=== PATIENT | male | born 1970 | race Asian ===

== ENCOUNTER → 2016-09-21 | Outpatient (CLI) | payer MEDICAID ==
[~2016-09-21] MED LIST: ASPI-515 PO; DOCU100C8 PO; FURO20TA3 PO; HYDR-3307 PO; LEVO112T6 PO; METO25TA35 PO; MORP30TA81 PO; PANT40TA5 PO; POTA10TA11 PO; WARF10TA6 PO; WARF5TAB PO
[2016-09-21 11:51] LABS: HEMOGLOBIN 16.5 g/dL (13.7-18.0)
== END | disposition home or self-care (01) ==
LOC: STAR 10:52
PROVIDERS: ATTEND Colon & Rectal Surgery
DX: Z01.818 Encounter for other preprocedural examination (principal); R79.1 Abnormal coagulation profile
CPT/HCPCS: 36415; 85025; 85610; 85730; 93005

== ENCOUNTER 2016-09-27 06:18 | Day surgery (SDC) | payer MEDICAID ==
[~2016-09-27] VITALS: Ht 182.9 cm; Wt 81.0 kg
[2016-09-27 07:06] VITALS: BP 124/85
[2016-09-27] MEDS ORDERED: ENOX120S5 SQ (07:09)
[2016-09-27] MEDS ORDERED: BUPIVACAINE/PF-EPI 0.5% 1:200K ONE (07:17)
[2016-09-27] MEDS ORDERED: BUPIVACAINE/PF-EPI 0.25% 1:200K ONE (07:17)
[2016-09-27] MEDS ORDERED: KETOROLAC 30 MG/1 ML IV PRN (07:30)
[2016-09-27] MEDS ORDERED: ONDANSETRON 2MG/ML, 2ML IVPush PRN (07:30)
[2016-09-27] MEDS ORDERED: MIDAZOLAM 1 MG/ML, 2ML IV PRN (07:30)
[2016-09-27] MEDS ORDERED: HYDROmorphone 1 MG/ML, 1ML IV PRN (07:30)
[2016-09-27] MEDS ORDERED: OXYcodone 5 MG/5 ML ORAL.SOL UDC PO PRN (07:30)
[2016-09-27] MEDS ORDERED: HYDROcodone/APAP 7.5-325MG/15ML UDC PO PRN (07:30)
[2016-09-27] MEDS ORDERED: FENTANYL PF 100 MCG/2ML IV PRN (07:30)
[2016-09-27] MEDS ORDERED: PROMETHAZINE 25 MG/ML, 1ML IV PRN (07:30)
[2016-09-27] MEDS ORDERED: ACETAMINOPHEN 325 MG TABLET PO PRN (07:30)
[2016-09-27] MEDS ORDERED: MEPERIDINE/PF 25MG/0.5ML IVPush PRN (07:30)
[2016-09-27] MEDS ORDERED: MIDAZOLAM 1 MG/ML, 2ML ONE (07:32)
[2016-09-27] MEDS ORDERED: PROPOFOL 10 MG/ML, 20ML ONE (07:32)
[2016-09-27] MEDS ORDERED: DEXAMETHASONE 4 MG/ML, 1ML ONE (07:32)
[2016-09-27] MEDS ORDERED: ONDANSETRON 2MG/ML, 2ML ONE (07:32)
[2016-09-27] MEDS ORDERED: FENTANYL PF 250 MCG/5ML ONE (07:32)
[2016-09-27] MEDS ORDERED: CEFOTETAN 2 GM ONE (07:32)
[2016-09-27] MEDS ORDERED: ACETAMINOPHEN 325 MG TABLET ONE (08:22)
[2016-09-27] MEDS ORDERED: KETOROLAC 30 MG/1 ML ONE (08:22)
[2016-09-27] MEDS ORDERED: OXYcodone 5 MG/5 ML ORAL.SOL UDC ONE (08:22)
== END 2016-09-27 10:05 | disposition home or self-care (01) ==
LOC: OUT 06:18
PROVIDERS: ATTEND Colon & Rectal Surgery
DX: K62.0 Anal polyp (principal); K60.2 Anal fissure, unspecified; E03.9 Hypothyroidism, unspecified; E78.5 Hyperlipidemia, unspecified; Z87.891 Personal history of nicotine dependence; I34.0 Nonrheumatic mitral (valve) insufficiency
CPT/HCPCS: 36415; 46200; 85610; 85730; 88304; J1100; J1885; J2250; J2405; J2704; J3010; S0074

== ENCOUNTER 2016-11-30 21:39 | Emergency (ER) | payer MEDICAID ==
[~2016-11-30] VITALS: Ht 182.9 cm; Wt 82.5 kg
[~2016-11-30 21:39] MED LIST changes: +ENOX120S5 SQ
[2016-11-30] MEDS ORDERED: SODIUM CHLORIDE 0.9% 1,000ML IVBOLUS ONE (22:30)
[2016-11-30] MEDS ORDERED: ONDANSETRON 2MG/ML, 2ML IVPush ONE (22:30)
[2016-11-30] MEDS ORDERED: SODIUM CHLORIDE FLUSH 10ML SYR IVF ONE (22:30)
[2016-11-30] MEDS ORDERED: MORPHINE SULFATE 4 MG/ML, 1ML ONE (22:36)
[2016-11-30] MEDS ORDERED: ONDANSETRON 2MG/ML, 2ML ONE (22:36)
[2016-11-30] MEDS: MORPHINE SULFATE 4 MG/ML, 1ML IVPush PRN (22:47)
[2016-11-30 23:06] LABS: ASPARTATE AMINO TRANSFERASE 54 U/L (15-37); BLOOD UREA NITROGEN 10 mg/dL (7-18)
[2016-12-01] MEDS ORDERED: FAMOTIDINE 20 MG/2 ML IVPush ONE (00:30)
[2016-12-01] MEDS ORDERED: MAALOX/HYOSCYAMINE/LIDOCAINE 45 ML BOTTLE PO ONE (00:30)
[2016-12-01] MEDS ORDERED: FAMOTIDINE 20 MG/2 ML ONE (00:41)
[2016-12-01] MEDS ORDERED: MAALOX/HYOSCYAMINE/LIDOCAINE 45 ML BOTTLE ONE (00:42)
[2016-12-01 01:20] LABS: IS PT STATUS REG ER OR PRE ER? YES
[2016-12-01] MEDS ORDERED: MORPHINE SULFATE 4 MG/ML, 1ML ONE (01:57)
[2016-12-01] MEDS: MORPHINE SULFATE 4 MG/ML, 1ML IVPush PRN (01:59)
[2016-12-01 02:02] VITALS: BP 116/65
== END 2016-12-01 02:38 | disposition home or self-care (01) ==
LOC: ED 23:59
DX: N20.0 Calculus of kidney (principal); K57.30 Diverticulosis of large intestine without perforation or abscess without bleeding
CPT/HCPCS: 36415; 74176; 76700; 80053; 81001; 83690; 84484; 85025; 93005; 96361; 96374; 96375; 96376; 99285; J2405; J7030; S0028

== ENCOUNTER 2016-12-11 00:46 | Emergency (ER) | payer MEDICAID ==
[~2016-12-11] VITALS: Ht 182.9 cm; Wt 82.9 kg
[2016-12-11 01:52] LABS: BLOOD UREA NITROGEN 15 mg/dL (7-18)
[2016-12-11 02:01] LABS: IS PT STATUS REG ER OR PRE ER? YES
[2016-12-11] MEDS ORDERED: HYDROcodone/APAP 5/325 TABLET ONE (02:05)
[2016-12-11] MEDS ORDERED: HYDROcodone/APAP 5/325 TABLET PO ONE (02:30)
[2016-12-11] MEDS ORDERED: PROMETHAZINE 25 MG/ML, 1ML IM ONE (03:00)
[2016-12-11] MEDS ORDERED: PROMETHAZINE 25 MG/ML, 1ML ONE (03:01)
[2016-12-11 03:08] VITALS: BP 129/76
== END 2016-12-11 04:16 | disposition home or self-care (01) ==
LOC: ED 03:55
DX: R55 Syncope and collapse (principal); G44.319 Acute post-traumatic headache, not intractable; E78.00 Pure hypercholesterolemia, unspecified
CPT/HCPCS: 36415; 70450; 71010; 80048; 82040; 84484; 85025; 85610; 93005; 96372; 99285; J2550

== ENCOUNTER 2018-06-05 08:12 | Emergency (ER) | payer MEDICAID ==
[~2018-06-05] VITALS: Ht 182.9 cm; Wt 81.7 kg
[~2018-06-05 08:12] MED LIST changes: +DOCU100C33 PO; -DOCU100C8 PO; +WARF10TA43 PO; -WARF10TA6 PO
[2018-06-05 09:55] LABS: BASOPHILS # (AUTO) 0.02 x10^3/uL (0-0.1); BASOPHILS % (AUTO) 0 % (0-1); EOSINOPHILS # (AUTO) 0.05 x10^3/uL (0-0.4); EOSINOPHILS % (AUTO) 1 % (1-7); LYMPHOCYTES # (AUTO) 1.45 x10^3/uL (1-3.4); LYMPHOCYTES % (AUTO) 29 % (22-44); MD NO; MEAN CORPUSCULAR HEMOGLOBIN 31.7 pg (27.5-34.5); MEAN CORPUSCULAR HGB CONC 34.3 g/dL (33.2-36.2); MEAN CORPUSCULAR VOLUME 92.4 fL (81-97); MEAN PLATELET VOLUME 10.6 fL (7.4-10.4); MONOCYTES # (AUTO) 0.33 x10^3/uL (0.2-0.8); MONOCYTES % (AUTO) 7 % (2-9); NEUTROPHILS # (AUTO) 3.18 x10^3/uL (1.8-6.8); NEUTROPHILS % (AUTO) 63 % (42-75); PLATELET COUNT 167 x10^3/uL (130-400); RED BLOOD COUNT 5.26 x10^6/uL (4.38-5.82); RED CELL DISTRIBUTION WIDTH 13.6 % (9.4-14.8)
[2018-06-05 10:01] LABS: ALANINE AMINOTRANSFERASE 26 U/L (12-78); ANION GAP 4 mmol/L (5-15); CALCIUM 8.6 mg/dL (8.5-10.1); CHLORIDE 108 mmol/L (98-107); CREATININE 1.21 mg/dL (0.7-1.3)
[2018-06-05 10:05] LABS: ALKALINE PHOSPHATASE 81 U/L (45-117); BILIRUBIN,TOTAL 1.7 mg/dL (0.2-1.0); TOTAL PROTEIN 7.9 g/dL (6.4-8.2); TROPONIN I < 0.015 ng/mL (0.000-0.045)
[2018-06-05 10:25] VITALS: BP 124/83
== END 2018-06-05 10:48 | disposition home or self-care (01) ==
LOC: ED 09:03
DX: R07.89 Other chest pain (principal); E78.00 Pure hypercholesterolemia, unspecified
CPT/HCPCS: 36415; 71046; 80053; 84484; 85025; 93005; 99284

== ENCOUNTER 2018-11-02 21:59 | Emergency (ER) | payer MEDICAID ==
[~2018-11-02] VITALS: Ht 182.9 cm; Wt 80.8 kg
[2018-11-02 22:03] VITALS: BP 158/97
--- NOTE | 2018-11-02 22:09 | NUR ---
BILAT HAND SWELLING AND BILAT KNEE SWELLING AND PAIN. STATED ALSO HAVING PROBLEM WITH LEFT SIDE THYROID AND HAS TROUBLE SWALLOWING.
[2018-11-02] MEDS ORDERED: DIAZEPAM 5 MG TABLET ONE (22:30)
[2018-11-02] MEDS ORDERED: DIAZEPAM 5 MG TABLET PO ONE (22:30)
[2018-11-02] MEDS ORDERED: HYDROmorphone 1 MG/ML, 1ML INJ IM ONE (22:30)
[2018-11-02 22:31] LABS: BASOPHILS # (AUTO) 0.03 x10^3/uL (0-0.1); BASOPHILS % (AUTO) 0 % (0-1); EOSINOPHILS # (AUTO) 0.11 x10^3/uL (0-0.4); EOSINOPHILS % (AUTO) 1 % (1-7); LYMPHOCYTES % (AUTO) 22 % (22-44); MD NO; MEAN CORPUSCULAR HEMOGLOBIN 30.4 pg (27.5-34.5); MEAN CORPUSCULAR VOLUME 92.3 fL (81-97); MEAN PLATELET VOLUME 9.4 fL (7.4-10.4); MONOCYTES % (AUTO) 5 % (2-9); NEUTROPHILS # (AUTO) 6.67 x10^3/uL (1.8-6.8); NEUTROPHILS % (AUTO) 72 % (42-75); PLATELET COUNT 245 x10^3/uL (130-400); RED BLOOD COUNT 4.65 x10^6/uL (4.38-5.82); RED CELL DISTRIBUTION WIDTH 13.6 % (9.4-14.8)
[2018-11-02] MEDS ORDERED: HYDROmorphone 2 MG/ML, 1ML ONE (22:31)
--- NOTE | 2018-11-02 22:40 | NUR ---
MEDICATED PER MAR PLACED ON CONTINOUS PULSE OX
[2018-11-02 22:44] LABS: ALBUMIN 3.6 g/dL (3.4-5.0); ANION GAP 8 mmol/L (5-15); CALCIUM 8.7 mg/dL (8.5-10.1); CHLORIDE 109 mmol/L (98-107)
[2018-11-02 22:53] LABS: T4 (THYROXINE) 11.9 mcg/dL (4.5-12.1)
[2018-11-02 23:11] LABS: INTERNATIONAL NORMALIZED RATIO 1.97 (0.93-1.1); PROTHROMBIN TIME 20.2 Seconds (9.6-11.5)
--- NOTE | 2018-11-03 00:07 | NUR ---
Patient/Caregiver given discharge instructions and they have confirmed that they understand the instructions. Patient ambulatory with steady gait.
== END 2018-11-03 00:08 | disposition home or self-care (01) ==
LOC: ED 22:18
DX: M19.042 Primary osteoarthritis, left hand (principal); M19.041 Primary osteoarthritis, right hand; M17.11 Unilateral primary osteoarthritis, right knee; E78.00 Pure hypercholesterolemia, unspecified; Z95.1 Presence of aortocoronary bypass graft; Z95.4 Presence of other heart-valve replacement
CPT/HCPCS: 36415; 80048; 82040; 84436; 84443; 85025; 85610; 85730; 96372; 99283; J1170

== ENCOUNTER → 2019-05-11 | Outpatient (CLI) | payer MEDICAID ==
[~2019-05-11] MED LIST changes: -HYDR-3307 PO; +HYDR-36 PO
== END | disposition home or self-care (01) ==
LOC: CFH 10:50
PROVIDERS: ATTEND Internal Medicine Cardiovascular Disease
DX: I34.0 Nonrheumatic mitral (valve) insufficiency (principal); Q23.0 Congenital stenosis of aortic valve; Z95.2 Presence of prosthetic heart valve; Z79.01 Long term (current) use of anticoagulants; Z87.891 Personal history of nicotine dependence
CPT/HCPCS: 93306

== ENCOUNTER → 2019-07-15 | Outpatient (CLI) | payer MEDICAID ==
[~2019-07-15] MED LIST changes: +OMNIPAQUE 350 MG/ML, 100ML BOTTLE ONE
== END | disposition home or self-care (01) ==
LOC: CFH 08:48
PROVIDERS: ATTEND Internal Medicine Cardiovascular Disease
DX: I71.2 Thoracic aortic aneurysm, without rupture (principal)
CPT/HCPCS: 71275; Q9967

== ENCOUNTER → 2020-08-17 | Outpatient (CLI) | payer MEDICAID ==
[~2020-08-17] MED LIST changes: -ASPI-515 PO; +ASPI-963 PO; +HYDR-3248 PO; -HYDR-36 PO; -OMNIPAQUE 350 MG/ML, 100ML BOTTLE ONE; -PANT40TA5 PO; +PANT40TA6 PO; -WARF5TAB PO; +WARF5TAB2 PO
== END | disposition home or self-care (01) ==
LOC: CFH 16:00
PROVIDERS: ATTEND Internal Medicine Cardiovascular Disease
DX: I34.0 Nonrheumatic mitral (valve) insufficiency (principal); I11.9 Hypertensive heart disease without heart failure; Q23.0 Congenital stenosis of aortic valve
CPT/HCPCS: 93306

== ENCOUNTER 2020-12-12 18:07 | Emergency (ER) | payer MEDICAID ==
[~2020-12-12] VITALS: Ht 182.9 cm; Wt 84.3 kg
[2020-12-12 18:08] VITALS: BP 134/85
--- NOTE | 2020-12-12 22:26 | NUR ---
BANQUET KITCHEN SUPERVISOR: PT. TO ROOM FROM LOBBY AT THIS TIME.
[2020-12-12] MEDS ORDERED: METHOCARBAMOL 750 MG TABLET ONE (22:45)
[2020-12-12] MEDS ORDERED: KETOROLAC 60 MG/2 ML ONE (22:45)
[2020-12-12] MEDS ORDERED: METHOCARBAMOL 750 MG TABLET PO ONE (23:00)
[2020-12-12] MEDS ORDERED: KETOROLAC 60 MG/2 ML IM ONE (23:00)
== END 2020-12-12 23:32 | disposition home or self-care (01) ==
LOC: ED 22:30
DX: S39.012A Strain of muscle, fascia and tendon of lower back, initial encounter (principal); E78.00 Pure hypercholesterolemia, unspecified; Z87.891 Personal history of nicotine dependence; X58.XXXA Exposure to other specified factors, initial encounter; Y93.89 Activity, other specified; Y92.89 Other specified places as the place of occurrence of the external cause; Y99.8 Other external cause status
CPT/HCPCS: 96372; 99283; J1885

== ENCOUNTER 2021-01-08 16:24 | Inpatient (IN) | payer MEDICAID ==
[~2021-01-08] VITALS: Ht 182.9 cm; Wt 85.8 kg
--- NOTE | 2021-01-08 17:06 | NUR ---
"I HURT MY HEAD BADLY, LIKE TWO WEEKS AGO. PT STATES WHEN HE STANDS HE IS NOW DIZZY" PT HAD CT ORDER BUT COULD NOT GET IN TO HAVE DONE. UNSURE IF +LOC. PT IN BED IN GOWN WITH CONT GROUP TEACHER, SPO2, BP Q 30 MIN, SIDE RAILS UP X2, CALL LIGHT IN REACH. AWATING MD MOLINA. NAD
--- NOTE | 2021-01-08 17:38 | NUR ---
PT TO CT
[2021-01-08] MEDS ORDERED: ACETAMINOPHEN 500 MG TABLET ONE (17:44)
[2021-01-08] MEDS ORDERED: PROMETHAZINE 25 MG/ML, 1ML ONE (17:44)
[2021-01-08] MEDS ORDERED: PROMETHAZINE 25 MG/ML, 1ML IM ONE (18:00)
[2021-01-08] MEDS ORDERED: [UNRECOGNIZED DRUG - OTHER] IV ONE (18:00)
[2021-01-08] MEDS ORDERED: ACETAMINOPHEN 500 MG TABLET PO ONE (18:00)
[2021-01-08] MEDS ORDERED: HUM PROTHROMBIN CPLX IV ONE (18:00)
--- NOTE | 2021-01-08 18:17 | NUR ---
paharmacy-nursing communication form sent for meds
[2021-01-08 18:23] LABS: BASOPHILS % (AUTO) 1 % (0-1); EOSINOPHILS % (AUTO) 0 % (1-7); LYMPHOCYTES % (AUTO) 16 % (22-44); MEAN CORPUSCULAR HEMOGLOBIN 31.1 pg (27.5-34.5); MEAN CORPUSCULAR HGB CONC 33.8 g/dL (33.2-36.2); MEAN PLATELET VOLUME 11.8 fL (7.4-10.4); MONOCYTES % (AUTO) 8 % (2-9); NEUTROPHILS % (AUTO) 76 % (42-75); PLATELET COUNT 146 x10^3/uL (130-400); RED BLOOD COUNT 4.35 x10^6/uL (4.38-5.82); RED CELL DISTRIBUTION WIDTH 13.5 % (9.4-14.8)
[2021-01-08] MEDS ORDERED: PHYTONADIONE 10 MG in SODIUM CHLORIDE 0.9% 50 ML IV ONE (18:30)
[2021-01-08 18:34] LABS: ALBUMIN 3.6 g/dL (3.4-5.0); ANION GAP 3 mmol/L (5-15); CALCIUM 8.7 mg/dL (8.5-10.1); CHLORIDE 108 mmol/L (98-107); CREATININE 1.19 mg/dL (0.7-1.3)
[2021-01-08 18:38] LABS: INTERNATIONAL NORMALIZED RATIO 2.58 (0.93-1.1); PROTHROMBIN TIME 26.4 Seconds (9.6-11.5)
--- NOTE | 2021-01-08 19:55 | NUR ---
PATIENT AMBULATORY TO RESTROOM. PATIENT DOES NOT WANT THIS RNS HELP HE STATES HE IS OK TO GO BY HIMSELF. DENIES DIZZINESS.
[2021-01-08] MEDS ORDERED: ACETAMINOPHEN 325 MG TABLET PO PRN (20:00)
[2021-01-08] MEDS ORDERED: POLYETHYLENE GLYCOL 17 GM PACKET PO PRN (20:00)
[2021-01-08] MEDS ORDERED: ONDANSETRON 2MG/ML, 2ML IVPush PRN (20:00)
[2021-01-08] MEDS ORDERED: LABETALOL 5MG/ML, 20ML IVPush PRN (20:00)
[2021-01-08] MEDS ORDERED: GUAIFENESIN/DM 200-20MG, 10ML UDC PO PRN (20:00)
[2021-01-08] MEDS ORDERED: MELATONIN 5 MG TABLET PO PRN (20:00)
--- NOTE | 2021-01-08 20:00 | NUR ---
PATIENT BACK FROM RESTROOM. PLACED BACK ON WARD ATTENDANT. FAMILY AT BEDSIDE. WILL CONTINUE TO MONITOR.
--- NOTE | 2021-01-08 20:25 | NUR ---
MULTIPLE FAMILY MEMEBERS AT BEDSIDE. PATIENT NOW C/O OF DIZZINESS. ATTEMPTED TO CALL MD SUAZO. LEFT VOICEMAIL. WILL CONTINUE TO MONITOR.
--- NOTE | 2021-01-08 20:32 | NUR ---
SPOKE WITH MD SUAZO. NO NEW ORDERS AT THIS TIME. WILL CONTINUE TO MONITOR.
--- NOTE | 2021-01-08 20:45 | NUR ---
PATIENT PROVIDED WITH BLANKET AND ICE WATER. STATES SHE IS GOING TO GET HIM SOMETHING TO EAT.
--- NOTE | 2021-01-08 21:42 | NUR ---
NEURO INTACT. DENIES TRAN/ DIZZINESS AT THIS TIME. BROUGHT PATIENT FOOD. WILL CONTINUE TO MONITOR.
--- NOTE | 2021-01-08 22:11 | NUR ---
PROVIDED PATIENT WITH PILLOW/ BLANKET. DENIES ANY OTHER NEEDS AT THIS TIME. / SON REMAIN AT BEDSIDE.
[2021-01-09] MEDS ORDERED: MELATONIN 5 MG TABLET ONE (00:14)
--- NOTE | 2021-01-09 00:16 | NUR ---
PLACED PATIENT ON INPATIENT BED. REQUESTING MEDICATION FOR SLEEP. NEURO INTACT. DENIES ANY OTHER NEEDS AT THIS TIME. [facility]
--- NOTE | 2021-01-09 00:30 | NUR ---
REPORT GIVEN TO PAULINE HOOPER CCU.
[2021-01-09 01:53] VITALS: BP_SYST 113; BP_DIAS 66; BP_DIAS 96
[2021-01-09 04:24] LABS: BASOPHILS % (AUTO) 1 % (0-1); EOSINOPHILS % (AUTO) 3 % (1-7); LYMPHOCYTES % (AUTO) 30 % (22-44); MEAN CORPUSCULAR HEMOGLOBIN 31.1 pg (27.5-34.5); MEAN CORPUSCULAR HGB CONC 33.3 g/dL (33.2-36.2); MONOCYTES % (AUTO) 12 % (2-9); NEUTROPHILS % (AUTO) 55 % (42-75); PLATELET COUNT 136 x10^3/uL (130-400); RED BLOOD COUNT 4.41 x10^6/uL (4.38-5.82); RED CELL DISTRIBUTION WIDTH 13.7 % (9.4-14.8)
[2021-01-09 04:37] LABS: CALCIUM 8.7 mg/dL (8.5-10.1); CHLORIDE 113 mmol/L (98-107)
[2021-01-09 04:41] LABS: ANION GAP 2 mmol/L (5-15); CHOL/HDL RATIO 4.2; CHOLESTEROL, TOTAL 133 mg/dL (140-239); CREATININE 1.11 mg/dL (0.7-1.3); HDL CHOL % 24 % (26-37); HDL CHOLESTEROL (DIRECT) 32 mg/dL (40-60); LDL CHOLESTEROL,CALCULATED 62 mg/dL (54-169); LDL/HDL RATIO 1.9 (0.5-3.0); TRIGLYCERIDES 194 mg/dL (50-200); VLDL CHOLESTEROL 39 mg/dL (0-25)
[2021-01-09] MEDS ORDERED: POTASSIUM CHLORIDE 20 MEQ TAB.ER.PRT PO ONE (06:30)
[2021-01-09 07:37] LABS: INTERNATIONAL NORMALIZED RATIO 1.12 (0.93-1.1); PROTHROMBIN TIME 11.9 Seconds (9.6-11.5)
== END 2021-01-09 12:01 | disposition home or self-care (01) | DRG 65 ==
LOC: ED 18:16 → EDIP 19:47 → CCU 01-09 00:37 → DCLOUNGE 01-09 11:40
PROVIDERS: ADMIT Internal Medicine; ATTEND Internal Medicine
DX: I62.01 Nontraumatic acute subdural hemorrhage (principal); G81.91 Hemiplegia, unspecified affecting right dominant side; E78.00 Pure hypercholesterolemia, unspecified; R40.2410 Glasgow coma scale score 13-15, unspecified time; E03.9 Hypothyroidism, unspecified; Z95.2 Presence of prosthetic heart valve; Z87.891 Personal history of nicotine dependence; Z79.01 Long term (current) use of anticoagulants; Z95.1 Presence of aortocoronary bypass graft
CPT/HCPCS: 36415; 70450; 80048; 80061; 82040; 83735; 84100; 84443; 85025; 85610; 85730; 87081; J2550; J3430; C9132

== ENCOUNTER 2021-01-26 08:11 | Emergency (ER) | payer MEDICAID ==
[~2021-01-26] VITALS: Ht 182.9 cm; Wt 82.5 kg
[2021-01-26 09:00] LABS: BASOPHILS % (AUTO) 1 % (0-1); EOSINOPHILS % (AUTO) 1 % (1-7); LYMPHOCYTES % (AUTO) 18 % (22-44); MEAN CORPUSCULAR HEMOGLOBIN 30.8 pg (27.5-34.5); MEAN CORPUSCULAR HGB CONC 33.9 g/dL (33.2-36.2); MEAN PLATELET VOLUME 9.1 fL (7.4-10.4); MONOCYTES % (AUTO) 5 % (2-9); NEUTROPHILS % (AUTO) 75 % (42-75); PLATELET COUNT 306 x10^3/uL (130-400); RED BLOOD COUNT 4.48 x10^6/uL (4.38-5.82); RED CELL DISTRIBUTION WIDTH 13.5 % (9.4-14.8)
[2021-01-26 09:11] LABS: ALANINE AMINOTRANSFERASE 23 U/L (12-78); ALBUMIN 3.6 g/dL (3.4-5.0); ANION GAP 5 mmol/L (5-15); CALCIUM 8.9 mg/dL (8.5-10.1); CHLORIDE 113 mmol/L (98-107); CREATININE 1.11 mg/dL (0.7-1.3); INTERNATIONAL NORMALIZED RATIO 3.06 (0.93-1.1)
--- NOTE | 2021-01-26 09:16 | NUR ---
PT AMBULATORY TO ROOM 20 W/ C/O TRAN X 1 WEEK. PT WAS SEEN AT [facility]'S OFFICE FOR MENINGEAL ARTERY EMBOLIZATION W/ DRAINAGE. PT STATES HE HAS HAD A CONTINUOUS TRAN SINCE THEN AND PT STATES HE FEELS THAT HE SHOULD HAVE SIGNIFICANT IMPROVEMENT OF TRAN AFTER SURGERY. PT NEURO INTACT. AOX4. PT STATES HE WAS PLACED ON TOPIRAMATE AND ONLY TOO IT A HANDFUL OF TIMES. PT RESTING IN EYE CHAIR. NADN. MONITORS APPLIED. VSS. ARM BLANKET PROVIDED. CALL LIGHT IN REACH.
[2021-01-26 09:17] LABS: ALKALINE PHOSPHATASE 64 U/L (45-117); BILIRUBIN,TOTAL 0.6 mg/dL (0.2-1.0); TOTAL PROTEIN 7.7 g/dL (6.4-8.2)
--- NOTE | 2021-01-26 09:40 | NUR ---
PT CHART REVIEWED AND PLACED FOR RECHECK.
[2021-01-26] MEDS ORDERED: DIPHENHYDRAMINE 50 MG/ML, 1ML ONE (09:47)
[2021-01-26] MEDS ORDERED: PROCHLORPERAZINE 5 MG/ML, 2ML ONE (09:47)
[2021-01-26] MEDS ORDERED: ONDANSETRON 2MG/ML, 2ML ONE (09:47)
[2021-01-26] MEDS ORDERED: DIPHENHYDRAMINE 50 MG/ML, 1ML IVPush ONE (10:00)
[2021-01-26] MEDS ORDERED: PROCHLORPERAZINE 5 MG/ML, 2ML IVPush ONE (10:00)
[2021-01-26] MEDS ORDERED: SODIUM CHLORIDE 0.9% 1,000ML IVBOLUS ONE (10:00)
[2021-01-26] MEDS ORDERED: ONDANSETRON ODT 4 MG PO ONE (10:00)
[2021-01-26] MEDS ORDERED: SODIUM CHLORIDE FLUSH 10ML SYR IVF ONE (10:00)
[2021-01-26 10:04] VITALS: BP 135/84
--- NOTE | 2021-01-26 10:04 | NUR ---
PT RESTING IN EYE CHAIR. VSS. ERP DR. SNYDER AT BEDSIDE FOR RE-EVAL.
[2021-01-26] MEDS ORDERED: ONDANSETRON 2MG/ML, 2ML IVPush ONE (10:30)
== END 2021-01-26 10:57 | disposition home or self-care (01) ==
LOC: ED 08:40
DX: R51.9 Headache, unspecified (principal); G89.29 Other chronic pain; R42 Dizziness and giddiness; E78.00 Pure hypercholesterolemia, unspecified; Z86.39 Personal history of other endocrine, nutritional and metabolic disease; Z87.891 Personal history of nicotine dependence
CPT/HCPCS: 36415; 70450; 80053; 85025; 85610; 85730; 96361; 96374; 96375; 99284; J0780; J1200; J2405; J7030

== ENCOUNTER 2021-02-06 03:29 | Inpatient (IN) | payer MEDICAID ==
[2021-02-06] VITALS (7 sets, daily range): BP systolic 112–149; BP diastolic 61–90
[~2021-02-06] VITALS: Ht 182.9 cm; Wt 81.1 kg
[2021-02-06] MEDS ORDERED: PROCHLORPERAZINE 5 MG/ML, 2ML IM ONE (04:30)
[2021-02-06] MEDS ORDERED: MORPHINE SULFATE 4 MG/ML, 1ML IVPush PRN (04:30)
[2021-02-06] MEDS ORDERED: PROCHLORPERAZINE 5 MG/ML, 2ML ONE (04:32)
[2021-02-06] MEDS ORDERED: MORPHINE SULFATE 4 MG/ML, 1ML ONE ×2 (04:32→07:40)
[2021-02-06 04:55] LABS: BASOPHILS % (AUTO) 0 % (0-1); EOSINOPHILS % (AUTO) 3 % (1-7); LYMPHOCYTES % (AUTO) 26 % (22-44); MEAN CORPUSCULAR HEMOGLOBIN 30.4 pg (27.5-34.5); MEAN CORPUSCULAR HGB CONC 33.3 g/dL (33.2-36.2); MEAN PLATELET VOLUME 10.4 fL (7.4-10.4); MONOCYTES % (AUTO) 10 % (2-9); NEUTROPHILS % (AUTO) 61 % (42-75); PLATELET COUNT 245 x10^3/uL (130-400); RED BLOOD COUNT 4.59 x10^6/uL (4.38-5.82); RED CELL DISTRIBUTION WIDTH 13.6 % (9.4-14.8)
[2021-02-06 05:07] LABS: ALBUMIN 3.6 g/dL (3.4-5.0); ANION GAP 6 mmol/L (5-15); CALCIUM 8.7 mg/dL (8.5-10.1); CHLORIDE 111 mmol/L (98-107); CREATININE 1.12 mg/dL (0.7-1.3)
[2021-02-06 05:11] LABS: INTERNATIONAL NORMALIZED RATIO 7.27 (0.93-1.1); PROTHROMBIN TIME 70.8 Seconds (9.6-11.5)
[2021-02-06] MEDS ORDERED: OMNIPAQUE 350 MG/ML, 100ML BOTTLE ONE (06:07)
--- NOTE | 2021-02-06 06:09 | NUR ---
Pt back from CT
--- NOTE | 2021-02-06 06:55 | NUR ---
REPORT RECEIVED FROM ERASMO CARPENTER. PT LAYING ON GURNEY WITH EYES CLOSED BUT RESPONDS APPROP TO STAFF, C/O INCR TRAN- ERP AWARE, COMFORT MEASURES PROVIDED, AT BS, CALL LIGHT WITHIN REACH.
--- NOTE | 2021-02-06 06:55 | NUR ---
Report given to PAULINE Henson
[2021-02-06] MEDS ORDERED: PHYTONADIONE 10 MG/ML, 1ML SQ ONE (07:00)
[2021-02-06] MEDS ORDERED: PHYTONADIONE 10 MG/ML, 1ML ONE (07:06)
[2021-02-06] MEDS: MORPHINE SULFATE 4 MG/ML, 1ML IVPush PRN ×2 (07:48→14:34)
--- NOTE | 2021-02-06 08:02 | NUR ---
PT CONTINUES LAYING ON GURNEY WITH EYES CLOSED BUT RESPONDS APPROP TO STAFF, NAD & MORE COMFORTABLE AFTER PAIN MED, NO NEEDS AT THIS TIME, AT BS, CALL LIGHT WITHIN REACH. ALSO SEEN BY H
--- NOTE | 2021-02-06 09:05 | NUR ---
PT CONTINUES LAYING ON GURNEY ABLE TO COMFORTBALY DOZE OFF BUT RESPONDS APPROP TO STAFF, NAD, COMFORT MEASURES PROVIDED, AT BS, CALL LIGHT WITHIN REACH.
--- NOTE | 2021-02-06 10:04 | NUR ---
PT LAYING ON GURNEY MOSTLY SLEEPING BUT RESPONDS APPROP TO STAFF W VERBAL STIMULI, NAD, NO NEEDS AT THIS TIME, AT BS, CALL LIGHT WITHIN REACH.
[2021-02-06] MEDS ORDERED: Keppra (10:53)
[2021-02-06] MEDS ORDERED: Statin (10:53)
[2021-02-06] MEDS ORDERED: Coumadin (10:53)
--- NOTE | 2021-02-06 10:59 | NUR ---
PT CONTINUES LAYING ON GURNEY MOSTLY SLEEPING BUT RESPONDS APPROP TO STAFF W VERBAL STIMULI, NAD, NO NEEDS AT THIS TIME, AT BS, CALL LIGHT WITHIN REACH.
--- NOTE | 2021-02-06 11:01 | NUR ---
PT LAYING ON GURNEY MOSTLY SLEEPING BUT RESPONDS APPROP TO STAFF W VERBAL STIMULI, NAD, NO NEEDS AT THIS TIME, CALL LIGHT WITHIN REACH.
--- NOTE | 2021-02-06 11:01 | NUR ---
Nathanael mckeon in ED - 02/06/21 at 1126 by STEPHANIE PT LAYING ON GURNEY MOSTLY SLEEPING BUT RESPONDS APPROP TO STAFF W VERBAL STIMULI, NAD, NO NEEDS AT THIS TIME, CALL LIGHT WITHIN REACH.
--- NOTE | 2021-02-06 11:01 | NUR ---
PT LAYING ON GURNEY MOSTLY SLEEPING BUT RESPONDS APPROP TO STAFF W VERBAL STIMULI, NAD, NO NEEDS AT THIS TIME, CALL LIGHT WITHIN REACH.
--- NOTE | 2021-02-06 12:03 | NUR ---
BREAK RN: LAYING IN BED IN CARE OF SON, A&OX4 GCS 15, C/O SLIGHT TRAN. L HANDGRASP WEAKER THAN Lee ENAMORADO. HIPOLITO. CRISTINA RAY.
[2021-02-06] MEDS ORDERED: ONDANSETRON 2MG/ML, 2ML IVPush PRN (12:30)
[2021-02-06] MEDS ORDERED: POLYETHYLENE GLYCOL 17 GM PACKET PO PRN (12:30)
[2021-02-06] MEDS ORDERED: ENALAPRILAT 1.25 MG/ML, 2ML IV PRN (12:30)
--- NOTE | 2021-02-06 13:00 | NUR ---
REPORT GIVEN TO DIONY CARPENTER
--- NOTE | 2021-02-06 13:00 | NUR ---
assumed care of pt. report from Jocelyne CARPENTER. pt here for increased TRAN with hx of brain bleed. per CT results from today, pt bleeding has increased. pt to be admitted and is currently awaiting placement in CCU. upon entering room, pt sleeping. easily arousable. neuro check completed. pt and son at bedside updated on POC
--- NOTE | 2021-02-06 14:01 | NUR ---
report to Joe CARPENTER
[2021-02-06] MEDS: POTASSIUM CHLORIDE 20 MEQ TAB.ER.PRT PO SCH ×2 (17:00→17:20)
[2021-02-06] MEDS ORDERED: SODIUM CHLORIDE 0.9% 250 ML IV SCH (20:00)
[2021-02-06] MEDS: HYDROcodone/APAP 5/325 TABLET PO PRN ×2 (20:15→21:28)
[2021-02-07] VITALS (7 sets, daily range): BP systolic 109–146; BP diastolic 66–91
[2021-02-07 04:28] LABS: BASOPHILS % (AUTO) 0 % (0-1); EOSINOPHILS % (AUTO) 0 % (1-7); LYMPHOCYTES % (AUTO) 15 % (22-44); MEAN CORPUSCULAR HEMOGLOBIN 30.8 pg (27.5-34.5); MEAN CORPUSCULAR HGB CONC 33.8 g/dL (33.2-36.2); MEAN PLATELET VOLUME 10.1 fL (7.4-10.4); MONOCYTES % (AUTO) 6 % (2-9); NEUTROPHILS % (AUTO) 79 % (42-75); PLATELET COUNT 234 x10^3/uL (130-400); RED BLOOD COUNT 4.51 x10^6/uL (4.38-5.82); RED CELL DISTRIBUTION WIDTH 13.6 % (9.4-14.8)
[2021-02-07 04:35] LABS: INTERNATIONAL NORMALIZED RATIO 2.54 (0.93-1.1)
[2021-02-07 04:36] LABS: ALBUMIN 3.8 g/dL (3.4-5.0); ANION GAP 6 mmol/L (5-15); CALCIUM 9.8 mg/dL (8.5-10.1); CHLORIDE 111 mmol/L (98-107)
[2021-02-07 04:40] LABS: ALANINE AMINOTRANSFERASE 19 U/L (12-78); ALKALINE PHOSPHATASE 60 U/L (45-117); BILIRUBIN,TOTAL 0.8 mg/dL (0.2-1.0); CREATININE 0.98 mg/dL (0.7-1.3); TOTAL PROTEIN 7.7 g/dL (6.4-8.2)
[2021-02-07] MEDS ORDERED: LEVOTHYROXINE 112 MCG TABLET PO SCH (06:00)
[2021-02-07] MEDS: POTASSIUM CHLORIDE 20 MEQ TAB.ER.PRT PO SCH ×2 (08:00→08:29)
[2021-02-07] MEDS ORDERED: POTASSIUM CHLORIDE 40 MEQ in SODIUM CHLORIDE 0.9% 500 ML IV ONE (11:00)
[2021-02-07 12:42] LABS: INTERNATIONAL NORMALIZED RATIO 2.48 (0.93-1.1); PROTHROMBIN TIME 25.4 Seconds (9.6-11.5)
[2021-02-07] MEDS ORDERED: SODIUM CHLORIDE 0.9% 250 ML IV ONE (17:30)
[2021-02-08] VITALS (8 sets, daily range): BP systolic 114–138; BP diastolic 68–89
[2021-02-08 06:31] LABS: BASOPHILS % (AUTO) 0 % (0-1); EOSINOPHILS % (AUTO) 1 % (1-7); LYMPHOCYTES % (AUTO) 15 % (22-44); MEAN CORPUSCULAR HEMOGLOBIN 30.8 pg (27.5-34.5); MEAN PLATELET VOLUME 9.6 fL (7.4-10.4); MONOCYTES % (AUTO) 7 % (2-9); NEUTROPHILS % (AUTO) 78 % (42-75); PLATELET COUNT 239 x10^3/uL (130-400); RED BLOOD COUNT 4.51 x10^6/uL (4.38-5.82); RED CELL DISTRIBUTION WIDTH 13.5 % (9.4-14.8)
[2021-02-08 06:40] LABS: INTERNATIONAL NORMALIZED RATIO 1.74 (0.93-1.1); PROTHROMBIN TIME 18.1 Seconds (9.6-11.5)
[2021-02-08 06:42] LABS: ALANINE AMINOTRANSFERASE 16 U/L (12-78); ALBUMIN 3.8 g/dL (3.4-5.0); ANION GAP 8 mmol/L (5-15); CALCIUM 9.3 mg/dL (8.5-10.1); CHLORIDE 110 mmol/L (98-107)
[2021-02-08 06:45] LABS: ALKALINE PHOSPHATASE 65 U/L (45-117); BILIRUBIN,TOTAL 1.2 mg/dL (0.2-1.0); CREATININE 0.97 mg/dL (0.7-1.3)
[2021-02-08] MEDS ORDERED: ROCURONIUM 10MG/ML,5ML ONE (08:00)
[2021-02-08] MEDS ORDERED: PROPOFOL 10 MG/ML, 20ML ONE (08:00)
[2021-02-08] MEDS ORDERED: PROPOFOL 10 MG/ML, 100ML IV ONE (08:00)
[2021-02-08] MEDS ORDERED: POTASSIUM CHLORIDE 40 MEQ in SODIUM CHLORIDE 0.9% 500 ML IV ONE (09:00)
[2021-02-08] MEDS ORDERED: SODIUM CHLORIDE 0.9% 250 ML IV ONE (09:00)
[2021-02-08] MEDS ORDERED: LEVOTHYROXINE 100 MCG INJ IVPush SCH (09:00)
[2021-02-08 12:37] LABS: INTERNATIONAL NORMALIZED RATIO 1.51 (0.93-1.1); PROTHROMBIN TIME 15.8 Seconds (9.6-11.5)
[2021-02-08] MEDS ORDERED: LEVETIRACETAM 500 MG in SODIUM CHLORIDE 0.9% 100 ML IV SCH ×2 (13:30→21:00)
[2021-02-08] MEDS ORDERED: DEXTROSE 50%, 50ML SYRINGE IVPush ONE (14:00)
[2021-02-08] MEDS ORDERED: D5%-0.45NACL+KCL 40MEQ 1,000 ML IV SCH (16:30)
[2021-02-08] MEDS: ACETAMINOPHEN 325 MG TABLET PO PRN (16:45)
[2021-02-08] MEDS ORDERED: BACITRACIN ZINC OINT 500U/GM, 0.9 GM ONE (18:24)
[2021-02-08] MEDS ORDERED: BUPIVACAINE/PF 0.5% ONE (18:24)
[2021-02-08] MEDS ORDERED: GENTAMICIN 80 MG/2 ML ONE (18:24)
[2021-02-08] MEDS ORDERED: EPINEPHRINE 1 MG/ML, 1ML ONE (18:24)
[2021-02-08] MEDS ORDERED: BACITRACIN OINT 500U/GM, 15 GM ONE (18:25)
[2021-02-08] MEDS ORDERED: THROMBIN 5,000 UNIT VIAL TP ONE (18:25)
[2021-02-08] MEDS ORDERED: ROCURONIUM 10 MG/ML,10ML IVPush ONE (19:00)
[2021-02-08] MEDS ORDERED: PHARMACY MAY ADJ FOR RENAL FX MC SCH (19:00)
[2021-02-08] MEDS ORDERED: PROPOFOL 10 MG/ML, 20ML IV ONE (19:00)
[2021-02-08] MEDS ORDERED: FENTANYL PF 250 MCG/5ML ONE (19:06)
[2021-02-08] MEDS: PROPOFOL 100 ML IV PRN (20:50)
[2021-02-08] MEDS: LABETALOL 5MG/ML, 20ML IV PRN ×2 (21:16→21:25)
[2021-02-09] MEDS: LEVETIRACETAM 500 MG in SODIUM CHLORIDE 0.9% 100 ML IV SCH ×2 (01:17→13:30)
[2021-02-09] MEDS: PROPOFOL 100 ML IV PRN (01:23)
[2021-02-09 03:57] LABS: BASOPHILS % (AUTO) 0 % (0-1); EOSINOPHILS % (AUTO) 1 % (1-7); LYMPHOCYTES % (AUTO) 14 % (22-44); MEAN CORPUSCULAR HEMOGLOBIN 30.5 pg (27.5-34.5); MEAN CORPUSCULAR HGB CONC 33.7 g/dL (33.2-36.2); MEAN PLATELET VOLUME 9.9 fL (7.4-10.4); MONOCYTES % (AUTO) 7 % (2-9); NEUTROPHILS % (AUTO) 78 % (42-75); PLATELET COUNT 209 x10^3/uL (130-400); RED BLOOD COUNT 4.11 x10^6/uL (4.38-5.82); RED CELL DISTRIBUTION WIDTH 13.7 % (9.4-14.8)
[2021-02-09 04:05] LABS: INTERNATIONAL NORMALIZED RATIO 1.47 (0.93-1.1); PROTHROMBIN TIME 15.4 Seconds (9.6-11.5)
[2021-02-09 04:06] LABS: ALANINE AMINOTRANSFERASE 19 U/L (12-78); ALBUMIN 3.2 g/dL (3.4-5.0); ANION GAP 7 mmol/L (5-15); CALCIUM 8.4 mg/dL (8.5-10.1); CHLORIDE 110 mmol/L (98-107); CREATININE 0.85 mg/dL (0.7-1.3)
[2021-02-09 04:08] LABS: ALKALINE PHOSPHATASE 59 U/L (45-117); BILIRUBIN,TOTAL 0.8 mg/dL (0.2-1.0); TOTAL PROTEIN 7.3 g/dL (6.4-8.2)
[2021-02-09] MEDS: SODIUM CHLORIDE 0.9% 1,000 ML IV SCH ×2 (06:56→20:05)
[2021-02-09] MEDS ORDERED: LEVOTHYROXINE 100 MCG INJ IVPush SCH (09:00)
[2021-02-09] MEDS: POTASSIUM CHLORIDE 20 MEQ PACKET PO SCH ×2 (10:06→17:41)
[2021-02-09] MEDS: HYDROcodone/APAP 5/325 TABLET PO PRN (19:29)
[2021-02-10] MEDS: LEVETIRACETAM 500 MG in SODIUM CHLORIDE 0.9% 100 ML IV SCH (02:02)
[2021-02-10] MEDS: HYDROcodone/APAP 5/325 TABLET PO PRN ×3 (02:08→16:53)
[2021-02-10 04:49] LABS: MICROSCOPIC NOT IND
[2021-02-10 06:03] LABS: BASOPHILS % (AUTO) 0 % (0-1); EOSINOPHILS % (AUTO) 1 % (1-7); LYMPHOCYTES % (AUTO) 17 % (22-44); MEAN CORPUSCULAR HEMOGLOBIN 30.5 pg (27.5-34.5); MEAN CORPUSCULAR HGB CONC 33.2 g/dL (33.2-36.2); MONOCYTES % (AUTO) 10 % (2-9); NEUTROPHILS % (AUTO) 73 % (42-75); PLATELET COUNT 195 x10^3/uL (130-400); RED BLOOD COUNT 3.92 x10^6/uL (4.38-5.82); RED CELL DISTRIBUTION WIDTH 13.5 % (9.4-14.8)
[2021-02-10 06:06] LABS: ANION GAP 9 mmol/L (5-15); CALCIUM 8.7 mg/dL (8.5-10.1); CHLORIDE 110 mmol/L (98-107); CREATININE 0.99 mg/dL (0.7-1.3)
[2021-02-10] MEDS ORDERED: POTASSIUM CHLORIDE 20 MEQ TAB.ER.PRT PO ONE (08:00)
[2021-02-10] MEDS: LEVOTHYROXINE 100 MCG TABLET PO SCH (08:04)
[2021-02-10] MEDS: LEVETIRACETAM 500 MG TABLET PO SCH ×2 (09:09→21:03)
[2021-02-10] MEDS: ATORVASTATIN 20 MG TABLET PO SCH (21:02)
[2021-02-10] MEDS: ACETAMINOPHEN 325 MG TABLET PO PRN (21:03)
[2021-02-11 04:11] LABS: BASOPHILS % (AUTO) 0 % (0-1); EOSINOPHILS % (AUTO) 1 % (1-7); LYMPHOCYTES % (AUTO) 18 % (22-44); MEAN CORPUSCULAR HEMOGLOBIN 30.5 pg (27.5-34.5); MEAN CORPUSCULAR HGB CONC 33.6 g/dL (33.2-36.2); MONOCYTES % (AUTO) 11 % (2-9); NEUTROPHILS % (AUTO) 70 % (42-75); PLATELET COUNT 183 x10^3/uL (130-400); RED BLOOD COUNT 3.75 x10^6/uL (4.38-5.82); RED CELL DISTRIBUTION WIDTH 13.4 % (9.4-14.8)
[2021-02-11] MEDS: ACETAMINOPHEN 325 MG TABLET PO PRN ×3 (05:41→19:54)
[2021-02-11] MEDS: LEVOTHYROXINE 100 MCG TABLET PO SCH (05:42)
[2021-02-11] MEDS: LEVETIRACETAM 500 MG TABLET PO SCH ×2 (09:19→19:54)
[2021-02-11] MEDS: HYDROcodone/APAP 5/325 TABLET PO PRN (10:10)
[2021-02-11] MEDS: ATORVASTATIN 20 MG TABLET PO SCH (19:54)
[2021-02-12] MEDS: ACETAMINOPHEN 325 MG TABLET PO PRN ×2 (03:34→21:07)
[2021-02-12 04:44] LABS: BASOPHILS % (AUTO) 1 % (0-1); EOSINOPHILS % (AUTO) 1 % (1-7); LYMPHOCYTES % (AUTO) 13 % (22-44); MEAN CORPUSCULAR HEMOGLOBIN 30.2 pg (27.5-34.5); MEAN CORPUSCULAR HGB CONC 33.7 g/dL (33.2-36.2); MONOCYTES % (AUTO) 9 % (2-9); NEUTROPHILS % (AUTO) 76 % (42-75); PLATELET COUNT 185 x10^3/uL (130-400); RED BLOOD COUNT 3.73 x10^6/uL (4.38-5.82); RED CELL DISTRIBUTION WIDTH 13.1 % (9.4-14.8)
[2021-02-12] MEDS: HYDROcodone/APAP 5/325 TABLET PO PRN ×4 (05:06→21:50)
[2021-02-12] MEDS: LEVOTHYROXINE 100 MCG TABLET PO SCH (05:07)
[2021-02-12] MEDS: LEVETIRACETAM 500 MG TABLET PO SCH ×2 (08:47→21:07)
[2021-02-12 09:38] LABS: ANION GAP 6 mmol/L (5-15); CALCIUM 8.9 mg/dL (8.5-10.1); CHLORIDE 105 mmol/L (98-107); CREATININE 0.88 mg/dL (0.7-1.3)
[2021-02-12 14:00] VITALS: BP 103/66
[2021-02-12 14:02] VITALS: BP 116/72
[2021-02-12] MEDS: POTASSIUM CHLORIDE 20 MEQ TAB.ER.PRT PO SCH (16:37)
[2021-02-12 18:59] VITALS: BP 108/70
[2021-02-12] MEDS: ATORVASTATIN 20 MG TABLET PO SCH (21:07)
[2021-02-13 00:23] VITALS: BP 104/71
[2021-02-13] MEDS: LEVOTHYROXINE 100 MCG TABLET PO SCH (06:05)
[2021-02-13 06:09] LABS: CALCIUM 9.1 mg/dL (8.5-10.1); CHLORIDE 106 mmol/L (98-107)
[2021-02-13 06:13] LABS: ANION GAP 4 mmol/L (5-15); CREATININE 0.89 mg/dL (0.7-1.3)
[2021-02-13 06:55] VITALS: BP 110/64
[2021-02-13] MEDS: HYDROcodone/APAP 5/325 TABLET PO PRN ×3 (07:15→21:17)
[2021-02-13] MEDS: LEVETIRACETAM 500 MG TABLET PO SCH ×2 (07:41→21:17)
[2021-02-13] MEDS: POTASSIUM CHLORIDE 20 MEQ TAB.ER.PRT PO SCH (07:41)
[2021-02-13] MEDS ORDERED: LEVE500T53 PO ×2 (13:40)
[2021-02-13 13:50] VITALS: BP 123/82
[2021-02-13 18:37] VITALS: BP 125/77
[2021-02-13 21:00] VITALS: BP 122/80
[2021-02-13] MEDS: ATORVASTATIN 20 MG TABLET PO SCH (21:00)
== END 2021-02-13 21:20 | disposition home or self-care (01) | DRG 25 ==
LOC: ED 06:04 → CCU 06:49 → SUATTDRO 07:19 → 5SO 02-07 19:19 → CCU 02-08 16:02 → CSU 02-09 12:35 → CCU 02-10 14:51 → 4NE 02-12 11:20
PROVIDERS: ADMIT Internal Medicine; ATTEND Internal Medicine
PROC: 5A1935Z Respiratory Ventilation, Less than 24 Consecutive Hours (ICD-10-PCS; 2021-02-08)
PROC: 0BH17EZ Insertion of Endotracheal Airway into Trachea, Via Natural or Artificial Opening (ICD-10-PCS; 2021-02-08)
PROC: 00C40ZZ Extirpation of Matter from Intracranial Subdural Space, Open Approach (ICD-10-PCS; principal; 2021-02-08 18:15)
DX: I62.01 Nontraumatic acute subdural hemorrhage (principal); G93.41 Metabolic encephalopathy; G93.5 Compression of brain; J96.01 Acute respiratory failure with hypoxia; G72.0 Drug-induced myopathy; Z99.11 Dependence on respirator [ventilator] status; E03.9 Hypothyroidism, unspecified; I62.03 Nontraumatic chronic subdural hemorrhage; Z20.822 Contact with and (suspected) exposure to COVID-19; E11.9 Type 2 diabetes mellitus without complications; E78.00 Pure hypercholesterolemia, unspecified; E78.5 Hyperlipidemia, unspecified; E87.6 Hypokalemia; G93.89 Other specified disorders of brain; I10 Essential (primary) hypertension; I35.0 Nonrheumatic aortic (valve) stenosis; I71.2 Thoracic aortic aneurysm, without rupture; M06.9 Rheumatoid arthritis, unspecified; R13.10 Dysphagia, unspecified; I34.0 Nonrheumatic mitral (valve) insufficiency; R79.1 Abnormal coagulation profile; T46.6X5A Adverse effect of antihyperlipidemic and antiarteriosclerotic drugs, initial encounter; Z79.01 Long term (current) use of anticoagulants; Z87.891 Personal history of nicotine dependence; Z95.1 Presence of aortocoronary bypass graft; Z95.2 Presence of prosthetic heart valve
CPT/HCPCS: 36415; 36600; 96372; 99291; S0020; 70450; 70496; 70498; 71045; 80048; 80053; 81003; 82040; 82803; 82962; 83735; 84100; 84443; 84478; 85025; 85610; 85730; 86850; 86900; 87040; 87070; 87081; 87205; 87635; 93005; 94002; 94003; C1713; C1729; G0378; J0171; J1953; J2405; J2704; J3010; J3430; J3480; Q9967; C1781; J0780; J1580; J2270; J7030; J7040; J7050; P9017

== ENCOUNTER 2021-02-14 21:31 | Inpatient (IN) | payer MEDICAID ==
[~2021-02-14] VITALS: Ht 182.9 cm; Wt 81.7 kg
[~2021-02-14 21:31] MED LIST changes: +Coumadin; +Keppra; +LEVE500T53 PO; +Statin
[2021-02-14] MEDS ORDERED: SODIUM CHLORIDE FLUSH 10ML SYR IVF ONE (22:00)
[2021-02-14 22:09] LABS: BASOPHILS % (AUTO) 1 % (0-1); EOSINOPHILS % (AUTO) 1 % (1-7); LYMPHOCYTES % (AUTO) 18 % (22-44); MEAN CORPUSCULAR HEMOGLOBIN 30.1 pg (27.5-34.5); MEAN CORPUSCULAR HGB CONC 33.3 g/dL (33.2-36.2); MEAN PLATELET VOLUME 9.7 fL (7.4-10.4); MONOCYTES % (AUTO) 8 % (2-9); NEUTROPHILS % (AUTO) 73 % (42-75); PLATELET COUNT 278 x10^3/uL (130-400); RED CELL DISTRIBUTION WIDTH 13.1 % (9.4-14.8)
[2021-02-14 22:17] LABS: ALANINE AMINOTRANSFERASE 29 U/L (12-78); ALBUMIN 3.4 g/dL (3.4-5.0); ANION GAP 6 mmol/L (5-15); CALCIUM 9.2 mg/dL (8.5-10.1); CHLORIDE 101 mmol/L (98-107)
[2021-02-14 22:20] LABS: ALKALINE PHOSPHATASE 101 U/L (45-117); BILIRUBIN,TOTAL 0.7 mg/dL (0.2-1.0); CREATININE 1.05 mg/dL (0.7-1.3); TOTAL PROTEIN 7.9 g/dL (6.4-8.2)
[2021-02-14 22:21] LABS: INTERNATIONAL NORMALIZED RATIO 1.11 (0.93-1.1); PROTHROMBIN TIME 11.8 Seconds (9.6-11.5)
[2021-02-14] MEDS ORDERED: SODIUM CHLORIDE 0.9% 1,000ML IVBOLUS ONE (23:00)
[2021-02-15] VITALS (13 sets, daily range): BP systolic 114–173; BP diastolic 73–91
[2021-02-15] MEDS ORDERED: BISACODYL 10 MG SUPP PR PRN
[2021-02-15] MEDS ORDERED: hydrALAzine 20 MG/ML, 1ML IVPush PRN
[2021-02-15] MEDS ORDERED: ONDANSETRON 2MG/ML, 2ML IVPush PRN
[2021-02-15] MEDS ORDERED: POLYETHYLENE GLYCOL 17 GM PACKET PO PRN
--- NOTE | 2021-02-15 00:53 | NUR ---
report to placido leonard ready for transfer to floor
[2021-02-15] MEDS: ACETAMINOPHEN 325 MG TABLET PO PRN ×3 (02:20→20:35)
[2021-02-15] MEDS ORDERED: LEVETIRACETAM 100 MG/ML, 5ML IVPush STA (02:27)
[2021-02-15] MEDS ORDERED: DIAZEPAM 5 MG/ML, 2ML IV ONE (02:30)
[2021-02-15] MEDS ORDERED: LEVETIRACETAM 500 MG in SODIUM CHLORIDE 0.9% 100 ML IV ONE (03:00)
[2021-02-15] MEDS ORDERED: LORazepam 2 MG/ML, 1ML IVPush PRN (07:30)
[2021-02-15] MEDS ORDERED: LORazepam 2 MG/ML, 1ML ONE (07:33)
[2021-02-15] MEDS ORDERED: LEVETIRACETAM 500 MG TABLET PO SCH (09:00)
[2021-02-15] MEDS: LEVOTHYROXINE 112 MCG TABLET PO SCH (09:00)
[2021-02-15] MEDS: SENNA/DOCUSATE TABLET PO SCH ×2 (09:59→10:23)
[2021-02-15 11:52] LABS: BASOPHILS % (AUTO) 1 % (0-1); EOSINOPHILS % (AUTO) 1 % (1-7); LYMPHOCYTES % (AUTO) 15 % (22-44); MEAN CORPUSCULAR HEMOGLOBIN 30.3 pg (27.5-34.5); MEAN CORPUSCULAR HGB CONC 33.5 g/dL (33.2-36.2); MEAN PLATELET VOLUME 9.5 fL (7.4-10.4); MONOCYTES % (AUTO) 9 % (2-9); NEUTROPHILS % (AUTO) 74 % (42-75); PLATELET COUNT 255 x10^3/uL (130-400); RED BLOOD COUNT 3.92 x10^6/uL (4.38-5.82); RED CELL DISTRIBUTION WIDTH 13.5 % (9.4-14.8)
[2021-02-15 12:01] LABS: ANION GAP 7 mmol/L (5-15); CALCIUM 9.1 mg/dL (8.5-10.1); CHLORIDE 106 mmol/L (98-107); CREATININE 0.87 mg/dL (0.7-1.3)
[2021-02-15] MEDS: LEVETIRACETAM 500 MG TABLET PO SCH (20:36)
[2021-02-16] VITALS (8 sets, daily range): BP systolic 111–126; BP diastolic 71–86
[2021-02-16 05:24] LABS: BASOPHILS % (AUTO) 1 % (0-1); EOSINOPHILS % (AUTO) 2 % (1-7); LYMPHOCYTES % (AUTO) 19 % (22-44); MEAN CORPUSCULAR HEMOGLOBIN 30.6 pg (27.5-34.5); MEAN CORPUSCULAR HGB CONC 33.6 g/dL (33.2-36.2); MONOCYTES % (AUTO) 9 % (2-9); NEUTROPHILS % (AUTO) 70 % (42-75); PLATELET COUNT 251 x10^3/uL (130-400); RED BLOOD COUNT 3.84 x10^6/uL (4.38-5.82); RED CELL DISTRIBUTION WIDTH 13.6 % (9.4-14.8)
[2021-02-16 05:35] LABS: ANION GAP 7 mmol/L (5-15); CALCIUM 9.1 mg/dL (8.5-10.1); CHLORIDE 107 mmol/L (98-107); CREATININE 0.82 mg/dL (0.7-1.3)
[2021-02-16] MEDS: SENNA/DOCUSATE TABLET PO SCH (08:58)
[2021-02-16] MEDS: LEVETIRACETAM 500 MG TABLET PO SCH (08:58)
[2021-02-16] MEDS: LEVOTHYROXINE 112 MCG TABLET PO SCH (08:59)
[2021-02-16] MEDS: ACETAMINOPHEN 325 MG TABLET PO PRN ×2 (11:48→17:40)
[2021-02-16] MEDS ORDERED: LEVE750T8 PO (13:37)
[2021-02-16] MEDS ORDERED: OXYC-293 PO (17:16)
== END 2021-02-16 18:26 | disposition home or self-care (01) | DRG 100 ==
LOC: ED 22:07 → EDIP 23:18 → 4EST 02-15 01:10
PROVIDERS: ADMIT Family Medicine; ATTEND Internal Medicine
DX: G40.201 Localization-related (focal) (partial) symptomatic epilepsy and epileptic syndromes with complex partial seizures, not intractable, with status epilepticus (principal); I62.03 Nontraumatic chronic subdural hemorrhage; E87.1 Hypo-osmolality and hyponatremia; E03.9 Hypothyroidism, unspecified; E78.5 Hyperlipidemia, unspecified; M06.9 Rheumatoid arthritis, unspecified; R29.810 Facial weakness; M19.90 Unspecified osteoarthritis, unspecified site; Z79.899 Other long term (current) drug therapy; Z95.1 Presence of aortocoronary bypass graft; Z95.2 Presence of prosthetic heart valve
CPT/HCPCS: 36415; 70450; 70551; 71045; 80048; 80053; 82962; 83735; 85025; 85610; 85730; 93005; 93306; 95819; 96374; G0378; J1953; J3360; J2060; J7030